=== PATIENT | male | born 1970 | race Caucasian/White ===

== ENCOUNTER 2018-10-07 09:02 | Day surgery (SDC) | payer OTHER ==
[2018-10-07] MEDS ORDERED: LIDOCAINE 2% (SDV) 5 ML INJ (10:08)
[2018-10-07] MEDS ORDERED: PROPOFOL 40 ML (10:08)
== END 2018-10-07 16:29 | disposition home or self-care (01) ==
LOC: GIL 09:02
DX: K92.1 Melena (principal); K64.8 Other hemorrhoids; K57.30 Diverticulosis of large intestine without perforation or abscess without bleeding; E11.9 Type 2 diabetes mellitus without complications; I10 Essential (primary) hypertension
CPT/HCPCS: 45378; 82962